=== PATIENT | male | born 1940 | race Caucasian/White ===

== ENCOUNTER 2019-03-03 15:40 | Outpatient (CLI) | payer MEDICARE, OTHER | END 2019-03-03 15:41 | disposition critical access hospital (66) | LOC: EMS 15:40 | PROVIDERS: ATTEND Surgery | DX: R41.82 Altered mental status, unspecified (principal); R10.9 Unspecified abdominal pain; R06.02 Shortness of breath | CPT/HCPCS: A0425; A0427 ==

== ENCOUNTER 2019-03-03 16:06 | Emergency (ER) | payer MEDICARE, OTHER ==
[2019-03-03] MEDS ORDERED: SODIUM CHLORIDE 0.9% 1,000 ML IV ONE (16:17)
--- NOTE | 2019-03-03 16:19 | ED Physician Documentation ---
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 He is on Eliquis for history of I think central retinal artery occlusion. He also has pulmonary fibrosis. A week ago he fell and broke his left arm. Since then he has been on oxycodone. He does not know the dose. Since last night he has been altered and complaining of abdominal pain. He is having diarrhea. No vomiting. History is somewhat limited because of some altered mental status and the is not here on initial evaluation.) Review of Systems Unable to obtain: AMS PD PAST MEDICAL HISTORY - Present Medications Home Medications: Ambulatory Orders Medication Instructions Recorded Confirmed Apixaban [Eliquis] 2.5 mg PO DAILY 06/25/17 06/25/17 Metoprolol Succinate 100 mg PO BID 06/25/17 06/25/17 Oxycodone HCl 15 mg PO Q4H 06/25/17 06/25/17 Cyclobenzaprine [Flexeril] 10 mg PO 03/03/19 03/03/19 Hydrocortisone 10 mg PO 03/03/19 Lisinopril 10 mg PO 03/03/19 03/03/19 Omeprazole 20 mg PO 03/03/19 03/03/19 - Allergies Allergies/Adverse Reactions: Allergies Allergy/AdvReac Type Severity Reaction Status Date / Time No Known Drug Allergies Allergy Verified 03/03/19 16:12 PD ED PE NORMAL - Vitals Vital signs reviewed: Yes - General General: Other (Is alert and oriented to person and place but not time, poor historian for recent events.) - HEENT HEENT: PERRL, EOMI, Other (Very dry mucous membranes) - Neck Neck: Supple, no meningeal sign, No bony TTP - Cardiac Cardiac: RRR, No murmur - Respiratory Respiratory: Other (mild crackles) - Abdomen Abdomen: Other (Soft with absent bowel tones, mild diffuse tenderness without focal findings or surgical signs.) - Back Back: No CVA TTP, No spinal TTP - Extremities Extremities: Other (Left arm is in a sugar tong splints, normal neurovascular function in the digits.) - Neuro Neuro: No motor deficit, No sensory deficit, Normal speech Eye Opening: Spontaneous Motor: Obeys Commands Verbal: Confused GCS Score: 14 Results - Vitals Vitals: Vital Signs - 24 hr 03/03/19 03/03/19 03/03/19 16:09 17:49 19:08 Temperature 36.4 C L 37.7 C H Heart Rate 111 H 107 H 104 H Respiratory 20 20 20 Rate Blood Pressure 141/106 H 139/75 H 115/97 H O2 Saturation 93 94 96 03/03/19 03/03/19 03/03/19 20:04 20:30 21:00 Temperature 36.7 C Heart Rate 99 91 95 Respiratory 17 22 17 Rate Blood Pressure 118/77 106/70 116/82 H O2 Saturation 95 93 97 Oxygen O2 Source Nasal cannula Oxygen Flow Rate 2 - Labs Labs: Laboratory Tests 03/03/19 03/03/19 03/03/19 16:28 16:28 16:28 WBC 15.2 H RBC 3.33 L Hgb 12.5 L Hct 37.9 L MCV 113.8 H MCH 37.5 H MCHC 33.0 RDW 15.9 H Plt Count 117 L MPV 13.4 H Neut # (Auto) Not Reportable Lymph # (Auto) Not Reportable [place] # (Auto) Not Reportable Eos # (Auto) Not Reportable Baso # (Auto) Not Reportable Absolute Nucleated RBC Not Reportable Total Counted 100 Band Neuts % (Manual) 0 Abnorm Lymph % (Manual) 0 Metamyelocytes % 1 H Nucleated RBC % Not Reportable Neutrophils # (Manual) 12.8 H Lymphocytes # (Manual) 2.1 Monocytes # (Manual) 0.0 Eosinophils # (Manual) 0.0 Basophils # (Manual) 0.2 H Differential Comment MANUAL DIFFERENTIAL Platelet Estimate DECREASED (<130,000) Platelet Morphology NORMAL APPEARANCE RBC Morph Micro Appear NORMAL APPEARANCE Sodium 129 L Potassium 3.9 Chloride 90 L Carbon Dioxide 20 L Anion Gap 19.0 H BUN 43 H Creatinine 1.5 H Estimated GFR (MDRD) 45 L Glucose 91 Lactic Acid 5.0 H* Calcium 8.6 Total Bilirubin 2.0 H AST 73 H ALT 32 Alkaline Phosphatase 112 Total Protein 6.2 L Albumin 2.9 L Globulin 3.3 Albumin/Globulin Ratio 0.9 L Lipase 21 L Urine Color Urine Clarity Urine pH Ur Specific Cope Urine Protein Urine Glucose (UA) Urine Ketones Urine Occult Blood Urine Nitrite Urine Bilirubin Urine Urobilinogen Ur Leukocyte Esterase Urine RBC Urine WBC Ur Squamous Epith Cells Urine Bacteria Urine Casts Ur Microscopic Review Urine Culture Comments 03/03/19 18:04 WBC RBC Hgb Hct MCV MCH MCHC RDW Plt Count MPV Neut # (Auto) Lymph # (Auto) [place] # (Auto) Eos # (Auto) Baso # (Auto) Absolute Nucleated RBC Total Counted Band Neuts % (Manual) Abnorm Lymph % (Manual) Metamyelocytes % Nucleated RBC % Neutrophils # (Manual) Lymphocytes # (Manual) Monocytes # (Manual) Eosinophils # (Manual) Basophils # (Manual) Differential Comment Platelet Estimate Platelet Morphology RBC Morph Micro Appear Sodium Potassium Chloride Carbon Dioxide Anion Gap BUN Creatinine Estimated GFR (MDRD) Glucose Lactic Acid Calcium Total Bilirubin AST ALT Alkaline Phosphatase Total Protein Albumin Globulin Albumin/Globulin Ratio Lipase Urine Color YELLOW Urine Clarity CLOUDY Urine pH 5.0 Ur Specific Cope 1.015 Urine Protein 30 H Urine Glucose (UA) NEGATIVE Urine Ketones TRACE Urine Occult Blood MODERATE H Urine Nitrite NEGATIVE Urine Bilirubin NEGATIVE Urine Urobilinogen 1 (NORMAL) Ur Leukocyte Esterase NEGATIVE Urine RBC 6-10 H Urine WBC 0-3 Ur Squamous Epith Cells NONE SEEN Urine Bacteria None Seen Urine Casts 11-25 Fine Granular Ur Microscopic Review INDICATED Urine Culture Comments NOT INDICATED - Rads (name of study) CT Head Radiology: EMP read contemporaneously (Mild patchy hypodensity in the bilateral cerebral white matter most consistent with chronic small vessel ischemic change. No acute intracranial hemorrhage, mass-effect, or CT evidence of CVA. Mild diffuse ventriculomegaly) CT Abd/Pel w IV contrast Radiology: EMP read contemporaneously (No acute intra-abdominal abnormalities. 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 Interstitial fibrosis of both lower lungs with increase in patchy groundglass opacities consistent with alveolitis or pneumonitis. CAD.) PD MEDICAL DECISION MAKING - ED course ED course: His significant other arrived shortly after my initial evaluation. He fell a week ago and has a supracondylar fracture on the left. Also a periprosthetic hip fracture. That is being treated conservatively but he will be scheduled for surgery for the supracondylar fracture on the left. Starting last night he has been confused and the abdominal pain just started prior to arrival. She is been giving him oxycodone, 15 mg every 4 hours scheduled. He is had diarrhea. No reported fevers. Work-up demonstrates some signs of sepsis with a white count of 15, lactate of 5. His prerenal azotemia which he says is new for him. He has a bibasilar pneumonia superimposed upon his chronic pulmonary fibrosis. Initial antibiotic coverage was Rocephin, Zithromax, and Flagyl, with pending concern for an abdominal issue until the CT was read. The CT was read without acute intra- abdominal abnormality. 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 Pino to [facility] at 6:15 PM and cobras were completed. - Critical Care Time(min): 38 Time Includes: Direct patient care, Review records, Reassess patient, Document care, Coordinate care, Medical consult, Family consult for tx dec Data interpretation: Labs, Pulse ox Procedures included in critical care time: Peripheral IV Departure - Departure Disposition: 02 Transfer Acute Care Hosp Clinical Impression: Atypical pneumonia Sepsis Qualifiers: Sepsis type: sepsis due to unspecified organism Sepsis acute organ dysfunction status: with acute organ dysfunction Severe sepsis acute organ dysfunction type: acute renal failure Acute renal failure type: unspecified Severe sepsis shock status: without septic shock Qualified Code(s): A41.9 - Sepsis, unspecified organism Altered mental status Qualifiers: Altered mental status type: delirium Qualified Code(s): R41.0 - Disorientation, unspecified Condition: Serious Discharge Date/Time: 03/03/19 21:28
[2019-03-03 16:33] LABS: BASOPHILS % (AUTO) 1.1 %; HGB - HEMOGLOBIN 12.5 g/dL (14.0-18.0); LYMPHOCYTES % (AUTO) 2.1 %; MEAN CORPUSCULAR HEMOGLOBIN 37.5 pg (27.0-31.0); MEAN CORPUSCULAR VOLUME 113.8 fL (80.0-94.0); MEAN PLATELET VOLUME 13.4 fL (7.4-11.4); NEUTROPHILS % (AUTO) 88.6 %; PLT - PLATELET COUNT 117 10^3/uL (130-450); RED BLOOD COUNT 3.33 10^6/uL (4.70-6.10); RED CELL DISTRIBUTION WIDTH 15.9 % (12.0-15.0); WHITE BLOOD COUNT 15.2 x10^3/uL (4.8-10.8)
[2019-03-03 16:36] LABS: ABNORMAL LYMPHS % (MANUAL) 0 %; BAND NEUTROPHILS % (MANUAL) 0 %
[2019-03-03 16:46] LABS: ALBUMIN 2.9 g/dL (3.2-5.5); ALBUMIN/GLOBULIN RATIO 0.9 (1.0-2.2); CALCIUM 8.6 mg/dL (8.5-10.3); CREATININE 1.5 mg/dL (0.6-1.2); TOTAL PROTEIN 6.2 g/dL (6.7-8.2)
[2019-03-03] MEDS ORDERED: LACTATED RINGERS 2,000 ML IV STA (16:50)
[2019-03-03] MEDS ORDERED: IOVERSOL 320 100 ML VIAL IVP ONE ×2 (17:04→17:24)
[2019-03-03 17:10] LABS: BASOPHILS # (MANUAL) 0.2 10^3/uL (0-0.1); BASOPHILS % (MANUAL) 1 %; DIFFERENTIAL COMMENT MANUAL DIFFERENTIAL; LYMPHOCYTES # (MANUAL) 2.1 10^3/uL (1.5-3.5); LYMPHOCYTES % (MANUAL) 14 %; METAMYELOCYTES % (MANUAL) 1 %; PLATELET ESTIMATE, MANUAL DECREASED (<130,000) (NORMAL); PLATELET MORPHOLOGY NORMAL APPEARANCE (NORMAL); RBC MORPHOLOGY (MULTIPLE) NORMAL APPEARANCE (NORMAL)
[2019-03-03] MEDS ORDERED: metroNIDAZOLE 500 MG/100 ML 500 MG/100 ML BAG IV STA (17:21)
[2019-03-03] MEDS ORDERED: cefTRIAXone 2 GM in SODIUM CHLORIDE 0.9% MINIBAG 100 ML IV STA (17:21)
[2019-03-03] MEDS ORDERED: AZITHROMYCIN INJ 500 MG in SODIUM CHLORIDE 0.9% 250 ML IV STA (17:33)
--- NOTE | 2019-03-03 17:57 | CT Report ---
Reason: altered Procedure Date: 03/03/2019 Accession Number: [id number] / [id number] Procedure: CT - HEAD WO CPT Code: FULL RESULT: EXAM: CT HEAD EXAM DATE: 03/03/2019 05:20 PM. CLINICAL HISTORY: Altered mental status. COMPARISON: None. TECHNIQUE: Multiaxial CT images were obtained from the foramen magnum to the vertex. Reformats: Sagittal and coronal. IV contrast: None. In accordance with CT protocol optimization, one or more of the following dose reduction techniques were utilized for this exam: automated exposure control, adjustment of mA and/or KV based on patient size, or use of iterative reconstructive technique. FINDINGS: Parenchyma: Mild patchy hypodensity in the right greater than left cerebral white matter most consistent with chronic small vessel ischemic change. No high density lesions. No mass-effect. Savage-white differentiation is intact. Extraaxial Spaces: Normal for age. No subdural or epidural collections identified. Ventricles: Mild generalized ventriculomegaly. Sinuses and Orbits: Bilateral cataract surgery. Mild bilateral maxillary sinus mucosal thickening. Moderate right sphenoid sinus mucosal thickening the other visualized paranasal sinuses are clear as are mastoids and middle ears. Bones: No evidence of fracture or calvarial defect. Other: None. IMPRESSION: 1. Mild patchy hypodensity in the bilateral cerebral white matter most consistent with chronic small vessel ischemic change. 2. No intracranial hemorrhage, mass-effect, or current CT evidence of acute CVA. 3. Mild diffuse ventriculomegaly which could reflect central-predominant cerebral volume loss or normal pressure hydrocephalus. RADIA
--- NOTE | 2019-03-03 18:06 | CT Report ---
Reason: IV only, ?SBO, abd pain Procedure Date: 03/03/2019 Accession Number: [id number] / [id number] Procedure: CT - Abdomen/Pelvis W CPT Code: FULL RESULT: EXAM: CT ABDOMEN AND PELVIS EXAM DATE: 03/03/2019 05:20 PM. CLINICAL HISTORY: IV only, ?SBO, abd pain. COMPARISONS: None TECHNIQUE: Routine helical CT imaging was performed through the abdomen and pelvis. IV contrast: 100 cc Optiray 320. Enteric contrast: No. Reconstructions: Coronal and sagittal. In accordance with CT protocol optimization, one or more of the following dose reduction techniques were utilized for this exam: automated exposure control, adjustment of mA and/or KV based on patient size, or use of iterative reconstructive technique. FINDINGS: ABDOMEN: Lung Bases: No basilar effusions. Redemonstration of honeycombing and perirectal vascular groundglass and septal thickening at the bilateral lower lungs, worsened since the prior CT of 12/29/2018. Severe coronary artery calcifications. Liver: Unremarkable. Spleen: Unremarkable. Pancreas: Pancreas is atrophic. Gallbladder/Bile Ducts: Gallbladder is unremarkable. Biliary tree is normal caliber. Adrenal Glands: Unremarkable. Kidneys: No mass, calculi, or hydronephrosis. Peritoneum/Mesentery/Bowel: No free fluid, free air, or collection. No intestinal obstruction or inflammation. Appendix not identified. No pericecal inflammatory changes. Lymph nodes: No mesenteric, periportal, or retroperitoneal lymphadenopathy. Vasculature: Aneurysmal dilatation of the right common iliac artery to 2.5 cm. Abdominal aorta is nonaneurysmal. Portal vein is patent. Hepatic veins are patent. PELVIS: The bladder is unremarkable for the degree of distention. Enlarged heterogeneous prostate is present. No pelvic lymphadenopathy. Bones: No suspicious osseous lesions. Left hip arthroplasty is present. IMPRESSION: No acute intra-abdominal abnormalities. 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 Findings consistent with known interstitial fibrosis of the bilateral lower lungs, with increase in patchy groundglass, may reflect active alveolitis and/or superimposed infection. Severe coronary artery calcifications. RADIA
[2019-03-03 19:17] LABS: BILIRUBIN,URINE NEGATIVE (NEGATIVE); GLUCOSE, URINE (UA) NEGATIVE (NEGATIVE); KETONES,URINE (UA) TRACE mg/dL (NEGATIVE); LEUKOCYTE ESTERASE, URINE NEGATIVE (NEGATIVE); NITRITE,URINE NEGATIVE (NEGATIVE); OCCULT BLOOD,URINE MODERATE (NEGATIVE); PROTEIN,URINE 30 mg/dL (NEGATIVE); UROBILINOGEN,URINE 1 (NORMAL) E.U./dL (NORMAL)
[2019-03-03 19:18] LABS: CLARITY,URINE CLOUDY (CLEAR)
[2019-03-03 19:40] LABS: BACTERIA,URINE None Seen /HPF (None Seen); CASTS, URINE 11-25 Fine Granular /LPF; SQUAMOUS EPITHELIAL CELL,UR NONE SEEN (<= Few)
[2019-03-03] MEDS ORDERED: DEXTROSE 5%-LACTATED RINGERS 1,000 ML IV SCH (21:00)
[2019-03-03] MEDS ORDERED: MORPHINE 2 MG/ML CARPUJECT IVP STA (21:17)
[2019-03-03 21:26] VITALS: BP 116/82
== END 2019-03-03 21:28 | disposition short-term general hospital (02) ==
LOC: EDUNIT# → ED 16:06
DX: A41.9 Sepsis, unspecified organism (principal); J18.9 Pneumonia, unspecified organism; R65.20 Severe sepsis without septic shock; N17.9 Acute kidney failure, unspecified; J84.10 Pulmonary fibrosis, unspecified; I72.3 Aneurysm of iliac artery; H34.10 Central retinal artery occlusion, unspecified eye; Z79.01 Long term (current) use of anticoagulants
CPT/HCPCS: 36415; 70450; 74177; 80053; 81001; 83605; 83690; 85025; 87040; 87181; 96361; 96365; 96368; 96375; 99285; 99291; J7120; Q9967; 81003; 87086

== ENCOUNTER 2019-03-03 21:32 | Outpatient (CLI) | payer MEDICARE, OTHER | END 2019-03-03 21:33 | disposition short-term general hospital (02) | LOC: EMS 21:32 | PROVIDERS: ATTEND Surgery | DX: J18.9 Pneumonia, unspecified organism (principal); A41.9 Sepsis, unspecified organism | CPT/HCPCS: A0425; A0428 ==